=== PATIENT | male | born 1985 | race American Indian/Alaskan Native ===

== ENCOUNTER 2018-02-16 10:33 | Emergency (ER) | payer MEDICAID ==
[2018-02-16 10:45] VITALS: BMI 23.6
[2018-02-16 10:47] VITALS: RESP 18
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
[2018-02-16] MEDS ORDERED: Oxycodone/Acetaminophen 5/325 mg Tab PO STA (11:28)
[2018-02-16 11:33] LABS: BASO # 0.02 K/mm3 (0.0-2.0); BASO % 0.4 % (0.0-3.0); EOS # 0.1 (0.0-0.7); EOS % 1.4 % (1.5-5.0); GRAN # 2.53 (1.4-6.5); GRAN % 50.5 % (50.0-68.0); HEMOGLOBIN 13.7 g/dL (14.0-18.0); LYMPH # 1.8 (1.2-3.4); LYMPH % 35.3 % (22.0-35.0); MEAN CELL VOLUME 86.1 fl (80.0-105.0); MEAN CORPUSCULAR HEMOGLOBIN 27.7 pg (25.0-35.0); MEAN CORPUSCULAR HGB CONC 32.2 g/dl (31.0-37.0); MONO # 0.6 (0.1-0.6); MONO % 12.4 % (1.0-6.0); RBC 4.95 10^6/uL (3.5-6.1); RED CELL DISTRIBUTION WIDTH 13.8 % (11.5-14.5)
[2018-02-16 11:41] LABS: ALB/GLOB RATIO 1.4 (1.1-1.8); ALBUMIN 4.6 g/dL (3.0-4.8); ALT/SGPT 51 U/L (7-56); AST/SGOT 46 U/L (17-59); BLOOD UREA NITROGEN 14 mg/dL (7-21); CALCIUM 9.9 mg/dL (8.4-10.5); GFR NON-AFRICAN AMERICAN > 60
[2018-02-16 11:52] LABS: TROPONIN I < 0.01 ng/mL
--- NOTE | 2018-02-16 12:18 | RAD ---
Date of service: 02/16/2018 HISTORY: chest pain COMPARISON: No prior. FINDINGS: LUNGS: No active pulmonary disease. PLEURA: No significant pleural effusion identified, no pneumothorax apparent. CARDIOVASCULAR: Normal. OSSEOUS STRUCTURES: No significant abnormalities. VISUALIZED UPPER ABDOMEN: Normal. OTHER FINDINGS: None. IMPRESSION: No active disease.
[2018-02-16] MEDS ORDERED: Iohexol 350 MG/100 ML VIAL ONE (12:26)
--- NOTE | 2018-02-16 13:19 | CT ---
Date of service: 02/16/2018 PROCEDURE: CT Chest with contrast (Pulmonary Angiogram) HISTORY: SOB w/ reproducible chest pain, elevated D-dimer COMPARISON: None available. TECHNIQUE: Axial computed tomography images were obtained of the chest in the pulmonary arterial phase of enhancement. Coronal and sagittal reformatted images were created and reviewed. Intravenous contrast dose: 100 mL Omnipaque 350 Radiation dose: Total exam DLP = 392.91 mGy-cm. This CT exam was performed using one or more of the following dose reduction techniques: Automated exposure control, adjustment of the mA and/or kV according to patient size, and/or use of iterative reconstruction technique. FINDINGS: PULMONARY ARTERIES: Unremarkable. No pulmonary embolism. AORTA: No acute findings. No thoracic aortic aneurysm. LUNGS: There are small bullae noted are seen at the lung apices. Small opacity noted at the lung bases likely atelectasis. There are also small opacity noted at the peripheral right mid and lower lung may represent atelectasis or small lung contusion. PLEURAL SPACES: Trace pericardial effusion on the right. HEART: Unremarkable. No cardiomegaly. No significant pericardial effusion. LYMPH NODES: No lymphadenopathy. BONES, CHEST WALL: There are displaced fracture at the lateral posterior aspect of the right 6th to 9th ribs. OTHER FINDINGS: Unremarkable. IMPRESSION: No evidence of pulmonary embolus. Mildly displaced fractures at the right 6th to 9th ribs. Trace right pleural effusion. Small opacities at the lung bases likely atelectasis and questionable small ground-glass and hazy opacities in the peripheral right lung may represent mild lung contusion. No evidence of pneumothorax. Mild emphysematous changes at the lung apices.
[2018-02-16] MEDS ORDERED: Albuterol 0.083% Inhal Sol (2.5 mg/3 mL) UD INH STA (13:37)
[2018-02-16 14:16] VITALS: BP 134/93; PULSE 72; TEMP 98.1; O2SAT 98
--- NOTE | 2018-02-16 20:51 | CARD ---
APPROVED REPORT Date of service: 02/16/2018 EKG Measurement Heart [id number] <Conclusion> Normal sinus rhythm Minimal voltage criteria for LVH, may be normal variant Borderline ECG
== END 2018-02-16 14:25 | disposition home or self-care (01) ==
LOC: ED 10:33
DX: S27.321D Contusion of lung, unilateral, subsequent encounter (principal); S22.41XD Multiple fractures of ribs, right side, subsequent encounter for fracture with routine healing; Y08.89XD Assault by other specified means, subsequent encounter
CPT/HCPCS: 71045; 71275; 80053; 83735; 84484; 85025; 85378; 93005; 96372; 99283; J1885; Q9967